=== PATIENT | male | born 2000 | race Caucasian/White ===

== ENCOUNTER 2019-02-01 14:07 | Emergency (ER) | payer SELFPAY ==
[~2019-02-01] VITALS: Ht 175 cm; Wt 79.0 kg
--- NOTE | 2019-02-01 14:29 | ED Upper Extremity ---
General Chief Complaint: Upper Extremity Stated Complaint: L WRIST PAIN Source: patient Exam Limitations: no limitations History of Present Illness Date Seen by Provider: Feb 01, 2019 Time Seen by Provider: 14:28 Initial Comments To ER with left wrist pain for the past month, no known injury pain is over the radial side distal radius. Any movement of the thumb worsens this pain. There is a tender swollen area at this location. Onset: other Severity: moderate Pain/Injury Location: left wrist Method of Injury: unknown Modifying Factors: Worse With Movement Allergies and Home Medications Allergies Coded Allergies: Penicillins (Unverified Allergy, Unknown, Shortness of Breath, 02/01/19) RASH Patient Home Medication List Home Medication List Reviewed: Yes Review of Systems Constitutional: see HPI EENTM: see HPI Respiratory: no symptoms reported Cardiovascular: no symptoms reported Genitourinary: no symptoms reported Musculoskeletal: see HPI Skin: no symptoms reported Psychiatric/Neurological: No Symptoms Reported Physical Exam Vital Signs Vital Signs - First Documented 02/01/19 14:40 Temp 37.0 Pulse 76 Resp 19 B/P (MAP) 130/79 (96) Pulse Ox 98 O2 Delivery Room Air Capillary Refill : Height, Weight, BMI Height: '" Weight: lbs. oz. kg; BMI Method: General Appearance: WD/WN, no apparent distress Respiratory: no respiratory distress, no accessory muscle use Shoulder: normal inspection, non-tender Elbow/Forearm: normal inspection, non-tender Wrist: Yes pain, Yes soft tissue tenderness (there is a swollen area to the radial side of the wrist just proximal to the joint tenderness palpation. The overlying skin is normal in appearance without erythema or ecchymosis) Hand: normal inspection, non-tender, Left Neurologic/Psychiatric: alert, normal mood/affect, oriented x 3 Skin: normal color, warm/dry Progress/Results/Core Measures Results/Orders My Orders Orders - KIMANI WEEMS APRN Wrist, Left, 3 Views Or More (02/01/19 14:27) Lidocaine 1% Inj 20 Ml (Xylocaine 1% Inj (02/01/19 14:45) Triamcinolone Acetonide Im (Kenalog-40) (02/01/19 14:45) Vital Signs/I&O 02/01/19 14:40 Temp 37.0 Pulse 76 Resp 19 B/P (MAP) 130/79 (96) Pulse Ox 98 O2 Delivery Room Air Departure Communication (Admissions) Recommended a injection of steroid and lidocaine into the tendon sheath at the site of inflammation,, he states he's never heard of this so he doesn't want it done. He will do a splint. He states he'll just come back here if it doesn't get better on its own in a few weeks. Advised him a primary care follow-up would be appropriate. Impression Primary Impression: De Quervain's tenosynovitis Disposition: HOME, SELF-CARE Condition: Stable Departure-Patient Inst. Decision time for Depature: 15:01 Patient Instructions: De Quervain's Tenosynovitis Add. Discharge Instructions: 1. Wear the splint for the next 3-4 weeks, if this fails to improve follow up with primary care such as urgent care for [facility] as it is not an emergency. All discharge instructions reviewed with patient and/or family. Voiced understanding. Images Extremities-Upper 1 - Swelling, Tenderness KIMANI WEEMS CLINICAL EDUCATION MANAGER Feb 01, 2019 14:29
[2019-02-01] MEDS ORDERED: LIDOCAINE 1% INJ 20 ML 20 ML VIAL INJ ONE (14:45)
[2019-02-01] MEDS ORDERED: TRIAMCINOLONE ACET (KENALOG-40) 40 MG/ML 1 ML VIAL IA ONE (14:45)
--- NOTE | 2019-02-01 14:52 | Diagnostic Imaging Report ---
INDICATION: Left wrist pain for three weeks. TIME OF EXAM: 02:43 p.m. FINDINGS: Three views of the left wrist were obtained. The distal radius and ulna appear intact. The carpus appears intact. Visualized metacarpals are unremarkable. No fractures are seen. IMPRESSION: No acute bony abnormality is detected. Dictated by: Dictated on workstation # [id number]
[2019-02-01 15:07] VITALS: BP 130/79
== END 2019-02-01 15:07 | disposition home or self-care (01) ==
LOC: ER 14:09
DX: M65.4 Radial styloid tenosynovitis [de Quervain] (principal); Z88.0 Allergy status to penicillin
CPT/HCPCS: 73110

== ENCOUNTER 2019-04-14 17:41 | Emergency (ER) | payer SELFPAY ==
[~2019-04-14] VITALS: Ht 175.3 cm; Wt 81.8 kg
--- NOTE | 2019-04-14 17:58 | ED Upper Extremity ---
General Chief Complaint: Upper Extremity Stated Complaint: L WRIST PAIN Nursing Triage Note: Pt amb to triage with c/o Lt wrist pain. Pt reports on 04/09/19 while carrying a gallon of milk, he injured wrist. Pt states, "I heard it pop." Pt reports hx "inflammed ligaments and tendons" to Lt wrist. Pt arrives wearing brace to Lt wrist. No swelling, bruising, or deformity noted. Nursing Sepsis Screen: No Definite Risk Source: patient Exam Limitations: no limitations History of Present Illness Date Seen by Provider: Apr 14, 2019 Time Seen by Provider: 18:38 Initial Comments ER with pain over the radial side distal forearm left after carrying a gallon of milk. He was seen in January of this year diagnosed with de Quervain's tenosynovitis, given a splint, offered Kenalog injection into the tendon sheath but he declined. He states he felt a popping/tearing sensation when carrying milk. Onset: last week Severity: moderate Pain/Injury Location: left shoulder Method of Injury: other Modifying Factors: Worse With Movement Allergies and Home Medications Allergies Coded Allergies: Penicillins (Unverified Allergy, Unknown, Shortness of Breath, 02/01/19) RASH Patient Home Medication List Home Medication List Reviewed: Yes Review of Systems Constitutional: see HPI EENTM: see HPI Respiratory: no symptoms reported Cardiovascular: no symptoms reported Genitourinary: no symptoms reported Musculoskeletal: see HPI Skin: no symptoms reported Psychiatric/Neurological: No Symptoms Reported Past Iepjaun-Oqbgnw-Mmedph Hx Patient Social History Alcohol Use: Denies Use Recreational Drug Use: No Smoking Status: Never a Smoker 2nd Hand Smoke Exposure: No Recent Foreign Travel: No Contact w/Someone Who Travel: No Recent Infectious Disease Expo: No Recent Hopitalizations: No Seasonal Allergies Seasonal Allergies: No Past Medical History Surgeries: No Respiratory: No Cardiac: No Neurological: No Genitourinary: No Gastrointestinal: No Musculoskeletal: No Endocrine: No HEENT: No Cancer: No Psychosocial: No Integumentary: No Blood Disorders: No Physical Exam Vital Signs Vital Signs - First Documented 04/14/19 17:47 Temp 37.3 Pulse 75 Resp 15 B/P (MAP) 129/87 (101) Pulse Ox 98 O2 Delivery Room Air Capillary Refill : Less Than 3 Seconds Height, Weight, BMI Height: '" Weight: lbs. oz. kg; 26.00 BMI Method: General Appearance: WD/WN, no apparent distress HEENT: PERRL/EOMI, normal ENT inspection Respiratory: no respiratory distress, no accessory muscle use Shoulder: normal inspection, non-tender Elbow/Forearm: normal inspection, Left (tenderness to palpation radial side distal forearm, normal extensor function of the thumb) Neurologic/Psychiatric: alert, normal mood/affect, oriented x 3 Skin: normal color, warm/dry Progress/Results/Core Measures Results/Orders My Orders Orders - KIMANI WEEMS APRN Wrist, Left, 3 Views Or More (04/14/19 17:46) Vital Signs/I&O 04/14/19 17:47 Temp 37.3 Pulse 75 Resp 15 B/P (MAP) 129/87 (101) Pulse Ox 98 O2 Delivery Room Air Blood Pressure Mean: 101 Departure Impression Primary Impression: Wrist strain Disposition: 01 HOME, SELF-CARE Condition: Improved Departure-Patient Inst. Decision time for Depature: 17:57 Referrals: NO,LOCAL PHYSICIAN (PCP/Family) Primary Care Physician Patient Instructions: Common Wrist Injuries (DC) Add. Discharge Instructions: 1.continue to wear the wrist splint I gave you last time 2. Follow-up with your doctor. All discharge instructions reviewed with patient and/or family. Voiced understanding. KIMANI WEEMS APRN Apr 14, 2019 17:58
--- NOTE | 2019-04-14 18:39 | Diagnostic Imaging Report ---
HISTORY: Popping of the left wrist while lifting. Reported history of tendinitis. COMPARISON: 02/01/2019. TECHNIQUE: Three views of the left wrist. FINDINGS: No acute fracture or dislocation is seen in the left wrist. Alignment is normal. Joint spaces are preserved. IMPRESSION: 1. No acute osseous abnormality is seen in the left wrist. Dictated by: Dictated on workstation # [id number]
[2019-04-14 18:47] VITALS: BP 129/87
== END 2019-04-14 18:47 | disposition home or self-care (01) ==
LOC: EDUNIT# 17:41 → ER 17:43
DX: S66.912A Strain of unspecified muscle, fascia and tendon at wrist and hand level, left hand, initial encounter (principal); Z88.0 Allergy status to penicillin; X50.0XXA Overexertion from strenuous movement or load, initial encounter
CPT/HCPCS: 73110

== ENCOUNTER 2022-01-22 18:55 | Emergency (ER) | payer SELFPAY ==
[~2022-01-22] VITALS: Ht 175.2 cm; Wt 99.3 kg
--- NOTE | 2022-01-22 19:17 | ED Abdominal Pain ---
General Chief Complaint: Abdominal/GI Problems Stated Complaint: STOMACH PAIN Source of Information: Patient Exam Limitations: No Limitations Allergies and Home Medications Allergies Coded Allergies: Penicillins (Unverified Allergy, Unknown, Shortness of Breath, 02/01/19) RASH Past Rcsoxtd-Bpcykm-Fdzwaz Hx Patient Social History Tobacco Use?: No Use of E-Cig and/or Vaping dev: No Substance use?: No Alcohol Use?: No Pt feels they are or have been: No Immunizations Up To Date Influenza Vaccine Up-to-Date: No; Not Current Seasonal Allergies Seasonal Allergies: No Past Medical History Surgeries: No Respiratory: No Cardiac: No Neurological: No Genitourinary: No Gastrointestinal: No Musculoskeletal: No Endocrine: No HEENT: No Cancer: No Psychosocial: No Integumentary: No Blood Disorders: No Physical Exam Vital Signs Vital Signs - First Documented 01/22/22 19:05 Temp 36.4 Pulse 78 Resp 14 B/P (MAP) 134/84 (101) Pulse Ox 97 O2 Delivery Room Air Capillary Refill : Height/Weight/BMI Height: '" Weight: lbs. oz. kg; 26.00 BMI Method: Progress/Results/Core Measures Results/Orders Lab Results Laboratory Tests Test 01/22/22 19:18 01/22/22 19:35 Range/Units Urine Color YELLOW Urine Clarity CLEAR Urine pH 6.0 5-9 Urine Specific [place] >=1.030 1.016-1.022 Urine Protein NEGATIVE NEGATIVE Urine Glucose (UA) NEGATIVE NEGATIVE Urine Ketones NEGATIVE NEGATIVE Urine Nitrite NEGATIVE NEGATIVE Urine Bilirubin NEGATIVE NEGATIVE Urine Urobilinogen 0.2 < = 1.0 MG/DL Urine Leukocyte Esterase 1+ H NEGATIVE Urine RBC (Auto) TRACE-I H NEGATIVE Urine RBC 0-2 /HPF Urine WBC 5-10 H /HPF Urine Squamous Epithelial Cells NONE /HPF Urine Renal Epithelial Cells NONE /HPF Urine Crystals NONE /LPF Urine Bacteria TRACE /HPF Urine Casts NONE /LPF Urine Mucus LARGE H /LPF Urine Culture Indicated YES White Blood Count 12.2 H 4.3-11.0 10^3/uL Red Blood Count 4.89 4.30-5.52 10^6/uL Hemoglobin 14.5 13.3-17.7 g/dL Hematocrit 43 40-54 % Mean Corpuscular Volume 87 80-99 fL Mean Corpuscular Hemoglobin 30 25-34 pg Mean Corpuscular Hemoglobin Concent 34 32-36 g/dL Red Cell Distribution Width 12.3 10.0-14.5 % Platelet Count 280 130-400 10^3/uL Mean Platelet Volume 11.7 9.0-12.2 fL Immature Granulocyte % (Auto) 1 % Neutrophils (%) (Auto) 61 42-75 % Lymphocytes (%) (Auto) 26 12-44 % Monocytes (%) (Auto) 11 0-12 % Eosinophils (%) (Auto) 2 0-10 % Basophils (%) (Auto) 1 0-10 % Neutrophils # (Auto) 7.4 1.8-7.8 10^3/uL Lymphocytes # (Auto) 3.1 1.0-4.0 10^3/uL Monocytes # (Auto) 1.4 H 0.0-1.0 10^3/uL Eosinophils # (Auto) 0.2 0.0-0.3 10^3/uL Basophils # (Auto) 0.1 0.0-0.1 10^3/uL Immature Granulocyte # (Auto) 0.1 0.0-0.1 10^3/uL Neutrophils % (Manual) 60 % Lymphocytes % (Manual) 24 % Monocytes % (Manual) 14 % Eosinophils % (Manual) 2 % Blood Morphology Comment NORMAL Sodium Level 138 135-145 MMOL/L Potassium Level 4.6 3.6-5.0 MMOL/L Chloride Level 102 98-107 MMOL/L Carbon Dioxide Level 23 21-32 MMOL/L Anion Gap 13 5-14 MMOL/L Blood Urea Nitrogen 17 7-18 MG/DL Creatinine 1.10 0.60-1.30 MG/DL Estimat Glomerular Filtration Rate 97 BUN/Creatinine Ratio 15 Glucose Level 83 70-105 MG/DL Calcium Level 9.6 8.5-10.1 MG/DL Corrected Calcium 9.4 8.5-10.1 MG/DL Total Bilirubin 0.4 0.1-1.0 MG/DL Aspartate Amino Transf (AST/SGOT) 31 5-34 U/L Alanine Aminotransferase (ALT/SGPT) 35 0-55 U/L Alkaline Phosphatase 75 40-136 U/L C-Reactive Protein High Sensitivity 1.59 H 0.00-0.50 MG/DL Total Protein 7.6 6.4-8.2 GM/DL Albumin 4.3 3.2-4.5 GM/DL My Orders Orders - JOHAN MORENO CONSTRUCTION OPERATIONS MANAGER Ua Culture If Indicated (01/22/22 19:14) Cbc And Manual Diff (01/22/22 19:28) Comprehensive Metabolic Panel (01/22/22 19:28) Hs C Reactive Protein (01/22/22 19:28) Ed Iv/Invasive Line Start (01/22/22 19:28) Ct Abdomen/Pelvis Wo (01/22/22 19:28) Urine Culture (01/22/22 19:18) Ketorolac Injection (Toradol Injection) (01/22/22 20:30) Vital Signs/I&O 01/22/22 19:05 Temp 36.4 Pulse 78 Resp 14 B/P (MAP) 134/84 (101) Pulse Ox 97 O2 Delivery Room Air Departure Impression Primary Impression: Epiploic appendagitis Disposition: HOME, SELF-CARE Condition: Improved Departure-Patient Inst. Decision time for Depature: 20:25 Referrals: NO,LOCAL PHYSICIAN (PCP/Family) Primary Care Physician Patient Instructions: Abdominal Pain, Adult ED Add. Discharge Instructions: Plan: 1. Take antibiotics by mouth twice daily as directed. 2. Drink plenty of fluids to stay hydrated. We are culturing your urine and will notify you if we need to change your antibiotics. 3. May take Ibuprofen 800mg by mouth every 8 hours as needed for pain, take with food. Do not take for more than a few days at this dose. 4. Return to ER for any new, concerning, or worsening symptoms. All discharge instructions reviewed with patient and/or family. Voiced understanding. Scripts Cefuroxime Axetil (Cefuroxime) 500 Mg Tablet 500 MG PO BID for 7 Days, #14 TAB 0 Refills Prov: JOHAN MORENO CONSTRUCTION OPERATIONS MANAGER 01/22/22 JOHAN MORENO CONSTRUCTION OPERATIONS MANAGER Jan 22, 2022 19:17
[2022-01-22 19:42] LABS: BASOPHILS # (AUTO) 0.1 10^3/uL (0.0-0.1); BASOPHILS % (AUTO) 1 % (0-10); EOSINOPHILS # (AUTO) 0.2 10^3/uL (0.0-0.3); EOSINOPHILS % (AUTO) 2 % (0-10); HEMATOCRIT 43 % (40-54); HEMOGLOBIN 14.5 g/dL (13.3-17.7); LYMPHOCYTES # (AUTO) 3.1 10^3/uL (1.0-4.0); LYMPHOCYTES % (AUTO) 26 % (12-44); MEAN CORPUSCULAR HEMOGLOBIN 30 pg (25-34); MEAN CORPUSCULAR HGB CONC 34 g/dL (32-36); MEAN CORPUSCULAR VOLUME 87 fL (80-99); MEAN PLATELET VOLUME 11.7 fL (9.0-12.2); MONOCYTES # (AUTO) 1.4 10^3/uL (0.0-1.0); MONOCYTES % (AUTO) 11 % (0-12); NEUTROPHILS # (AUTO) 7.4 10^3/uL (1.8-7.8); NEUTROPHILS % (AUTO) 61 % (42-75); PLATELET COUNT 280 10^3/uL (130-400); WHITE BLOOD COUNT 12.2 10^3/uL (4.3-11.0)
[2022-01-22 19:42] LABS: BILIRUBIN,URINE NEGATIVE (NEGATIVE); CLARITY,URINE CLEAR; COLOR,URINE YELLOW; GLUCOSE, URINE (UA) NEGATIVE (NEGATIVE); KETONES,URINE NEGATIVE (NEGATIVE); LEUKOCYTE ESTERASE ,URINE 1+ (NEGATIVE); NITRITE,URINE NEGATIVE (NEGATIVE); PROTEIN,URINE NEGATIVE (NEGATIVE)
[2022-01-22 19:44] LABS: BACTERIA,URINE TRACE /HPF; RBC,URINE 0-2 /HPF
[2022-01-22 19:57] LABS: EOSINOPHILS % (MANUAL) 2 %; LYMPHOCYTES % (MANUAL) 24 %; MONOCYTES % (MANUAL) 14 %; NEUTROPHILS % (MANUAL) 60 %; RBC MORPH NORMAL
--- NOTE | 2022-01-22 20:08 | Diagnostic Imaging Report ---
PROCEDURE: CT abdomen and pelvis without contrast. TECHNIQUE: Multiple contiguous axial images were obtained through the abdomen and pelvis without the use of intravenous contrast. Auto Exposure Controls were utilized during the CT exam to meet ALARA standards for radiation dose reduction. INDICATION: Worsening abdominal pain, worse on the left side. COMPARISON: None FINDINGS: The lung bases are clear. The heart is normal in size. There is no pericardial effusion. The liver demonstrates no focal lesions. The spleen appears normal. The pancreas is normal. The adrenal glands appear normal. The kidneys demonstrate no hydronephrosis or hydroureter. No calculi are seen. The appendix is normal. The bowel loops are nondistended without obstruction. There is edema in the pelvis. There is a fatty lesion at the right sigmoid colon measuring 2.0 x 1.0 cm in size, with surrounding edema and fluid, most compatible with an epiploic appendagitis. Colitis is in differential but thought less likely. There is no free air. No acute osseous abnormality is seen. IMPRESSION: 1. Mild edema in the pelvis with findings of an epiploic appendagitis at the sigmoid colon. Colitis is in the differential but thought less likely. Dictated by: Dictated on workstation # [id number]
[2022-01-22 20:13] LABS: ALBUMIN 4.3 GM/DL (3.2-4.5); BILIRUBIN,TOTAL 0.4 MG/DL (0.1-1.0); CALCIUM 9.6 MG/DL (8.5-10.1); CREATININE SERUM 1.1 MG/DL (0.60-1.30); POTASSIUM 4.6 MMOL/L (3.6-5.0); TOTAL PROTEIN 7.6 GM/DL (6.4-8.2)
[2022-01-22] MEDS ORDERED: KETOROLAC 30 MG/ML VIAL IVP ONE (20:30)
[2022-01-22] MEDS ORDERED: cefTRIAXone 1 GM PRE-MIX 50 ML IV ONE (20:30)
[2022-01-22] MEDS ORDERED: CEFU500T63 PO (20:32)
[2022-01-22 20:40] VITALS: BP 120/70
== END 2022-01-22 20:42 | disposition home or self-care (01) ==
LOC: EDUNIT# 18:55 → ER 18:57
DX: K63.89 Other specified diseases of intestine (principal); Z28.310 Unvaccinated for COVID-19
CPT/HCPCS: 36415; 74176; 80053; 81000; 85007; 85027; 86141; 87088

== ENCOUNTER 2022-02-07 16:17 | Emergency (ER) | payer SELFPAY ==
[~2022-02-07] VITALS: Ht 177.8 cm; Wt 95.3 kg
[~2022-02-07 16:17] MED LIST: CEFU500T63 PO
[2022-02-07 16:27] VITALS: BP 143/82
--- NOTE | 2022-02-07 16:42 | ED General ---
General Chief Complaint: Cough/Cold/Flu Symptoms Stated Complaint: FEVER,NAUSEA,LOSS OF APET. Nursing Triage Note: PT AMB TO [facility] 9 WITH COMPLAINT OF NOT FEELING WELL SINCE FRIDAY. LIGHTHEADED, LOSS OF APPETITE. STATES HIS BOSS WAS DIAGNOSED YESTERDAY WITH THE FLU. History of Present Illness Date Seen by Provider: Feb 07, 2022 Time Seen by Provider: 16:30 Initial Comments 21 year old male here because his boss has "flu" and he has been riding in the same car. Unsure if Influenza or Covid or GI symptoms. Patient reports occasional dry cough, feeling warm, he has not checked his temperature with a thermometer, decreased appetite, occasional nausea. He has not had vomiting or diarrhea. He has not been vaccinated for COVID or influen za. He reports having COVID approximately 1 year ago. No other complaints at this time. He does not have a primary care provider. He occasionally has a headache, he has not taken Tylenol or ibuprofen for symptoms today. He is eating and drinking with no complaints. Timing/Duration: 2-3 Days Severity: Mild Associated Systoms: No Chest Pain; Cough (non productive); No Diaphoresis, No Fever/Chills; Headaches; No Loss of Appetite; Malaise; No Nausea/Vomiting, No Rash, No Seizure, No Shortness of Air, No Syncope, No Weakness Allergies and Home Medications Allergies Coded Allergies: Penicillins (Unverified Allergy, Unknown, Shortness of Breath, 02/01/19) RASH Patient Home Medication List Home Medication List Reviewed: Yes Cefuroxime Axetil (Cefuroxime) 500 Mg Tablet, 500 MG PO BID Prescribed by: JOHAN MORENO on 01/22/222031 Review of Systems Review of Systems Constitutional: see HPI, malaise EENTM: see HPI, no symptoms reported Respiratory: see HPI, cough; No dyspnea on exertion, No short of breath Cardiovascular: no symptoms reported, see HPI Gastrointestinal: no symptoms reported, see HPI; No vomiting All Other Systems Reviewed Negative Unless Noted: Yes Past Dtulbsy-Vqvdei-Yemuxt Hx Patient Social History Tobacco Use?: No Use of E-Cig and/or Vaping dev: No Substance use?: No Alcohol Use?: No Pt feels they are or have been: No Seasonal Allergies Seasonal Allergies: No Past Medical History Surgeries: No Respiratory: No Cardiac: No Neurological: No Genitourinary: No Gastrointestinal: No Musculoskeletal: No Endocrine: No HEENT: No Cancer: No Psychosocial: No Integumentary: No Blood Disorders: No Family Medical History Reviewed Nursing Family Hx Physical Exam Vital Signs Vital Signs - First Documented 02/07/22 16:27 Temp 36.8 Pulse 76 Resp 19 B/P (MAP) 143/82 (102) Pulse Ox 98 O2 Delivery Room Air Capillary Refill : Less Than 3 Seconds Height, Weight, BMI Height: '" Weight: lbs. oz. kg; 30.00 BMI Method: General Appearance: No Apparent Distress, WD/WN HEENT: PERRL/EOMI, TMs Normal, Normal ENT Inspection, Pharynx Normal Neck: Full Range of Motion, Normal Inspection, Non Tender, Supple Respiratory: Chest Non Tender, Lungs Clear, Normal Breath Sounds Cardiovascular: Regular Rate, Rhythm, No Edema, No Murmur, Normal Peripheral Pulses Gastrointestinal: Normal Bowel Sounds, Non Tender, Soft Extremity: Normal Capillary Refill, Normal Inspection Neurologic/Psychiatric: Alert, Oriented x3, No Motor/Sensory Deficits, Normal Mood/Affect Skin: Normal Color, Warm/Dry Progress/Results/Core Measures Suspected Sepsis SIRS Temperature: Pulse: 76 Respiratory Rate: 19 Blood Pressure 143 /82 Mean: 102 Results/Orders Lab Results Laboratory Tests Test 02/07/22 16:35 Range/Units Influenza Type A (RT-PCR) Not Detected Not Detecte Influenza Type B (RT-PCR) Not Detected Not Detecte SARS-CoV-2 RNA (RT-PCR) Not Detected Not Detecte My Orders Orders - MACIEL MARTINEZ Influenza A And B By Pcr (02/07/22 16:34) Covid 19 Inhouse Test (02/07/22 16:34) Vital Signs/I&O 02/07/22 16:27 Temp 36.8 Pulse 76 Resp 19 B/P (MAP) 143/82 (102) Pulse Ox 98 O2 Delivery Room Air Capillary Refill : Less Than 3 Seconds Blood Pressure Mean: 102 Departure Impression Primary Impression: Viral URI with cough Disposition: 01 HOME, SELF-CARE Condition: Improved Departure-Patient Inst. Decision time for Depature: 16:30 Referrals: [facility], [facility] [place] NO,LOCAL PHYSICIAN (PCP) Primary Care Physician Add. Discharge Instructions: Establish care with a Primary Care Provider. For non-emergent complaints, consider being evaluated at Urgent Care or [facility]. Alternate ibuprofen 600 mg and Tylenol 650 mg every 4 hours for fever or pain. [place] diet as tolerated. Return to the emergency department for new, life threatening concerns. All discharge instructions reviewed with patient and/or family. Voiced understanding. MACIEL MARTINEZ Feb 07, 2022 16:42
== END 2022-02-07 17:14 | disposition home or self-care (01) ==
LOC: EDUNIT# 16:17 → ER 16:19
DX: J06.9 Acute upper respiratory infection, unspecified (principal); Z20.822 Contact with and (suspected) exposure to COVID-19
CPT/HCPCS: 87636; 99283

== ENCOUNTER 2022-02-11 13:25 | Emergency (ER) | payer SELFPAY ==
[2022-02-11] MEDS ORDERED: OXYMETAZOLINE (AFRIN) 0.05% NA 30 ML BTL ONE (13:34)
--- NOTE | 2022-02-11 13:41 | ED EENT ---
History of Present Illness General Chief Complaint: Nasal Problems Stated Complaint: BLEEDING NOSE Nursing Triage Note: PT ARRIVAL TO ER FROM WORK WITH COMPLAINT OF NOSE BLEED X30 MIN. DENIES TRAUMA OR INJURY. Source: patient Exam Limitations: no limitations History of Present Illness Date Seen by Provider: Feb 11, 2022 Time Seen by Provider: 13:32 Initial Comments 21-year-old male who is otherwise healthy presents for nosebleed. Symptoms started about an hour to an hour and a half ago and have been. Had similar issue a couple years ago but has not had a chronic problem with nosebleeds. No gingival bleeding and no easy bruising. He is not on any blood thinning medications. No digital or other trauma. Allergies and Home Medications Allergies Coded Allergies: Penicillins (Unverified Allergy, Unknown, Shortness of Breath, 02/01/19) RASH Patient Home Medication List Home Medication List Reviewed: Yes Cefuroxime Axetil (Cefuroxime) 500 Mg Tablet, 500 MG PO BID Prescribed by: JOHAN MORENO on 01/22/222031 Review of Systems Review of Systems Constitutional: no symptoms reported Eyes: No Symptoms Reported Ears: No Symptoms Reported Nose: epistaxis Mouth: no symptoms reported Throat: no symptoms reported Respiratory: no symptoms reported Cardiovascular: no symptoms reported Gastrointestinal: no symptoms reported Musculoskeletal: no symptoms reported Skin: no symptoms reported Neurological: No Symptoms Reported Hematologic/Lymphatic: No Symptoms Reported Immunological/Allergic: no symptoms reported Past Nvelezj-Kjddlf-Mqyasv Hx Patient Social History Tobacco Use?: No Use of E-Cig and/or Vaping dev: No Substance use?: No Alcohol Use?: No Pt feels they are or have been: No Immunizations Up To Date Influenza Vaccine Up-to-Date: No; Not Current Seasonal Allergies Seasonal Allergies: No Past Medical History Surgeries: No Respiratory: No Cardiac: No Neurological: No Genitourinary: No Gastrointestinal: No Musculoskeletal: No Endocrine: No HEENT: No Cancer: No Psychosocial: No Integumentary: No Blood Disorders: No Family Medical History Reviewed Nursing Family Hx No Pertinent Family Hx Physical Exam Vital Signs Vital Signs - First Documented 02/11/22 13:32 Temp 36.8 Pulse 77 Resp 16 B/P (MAP) 130/89 (103) Pulse Ox 98 O2 Delivery Room Air Height, Weight, BMI Height: '" Weight: lbs. oz. kg; 30.00 BMI Method: General Appearance: WD/WN, no apparent distress Nose: normal inspection, other (Slight bleeding left posterior nare. Minimal at present.) Mouth/Throat: normal mouth inspection, pharynx normal Neck: non-tender, full range of motion, supple, normal inspection Cardiovascular: regular rate, rhythm, no edema, no gallop Respiratory: chest non-tender, lungs clear, normal breath sounds, no respiratory distress, no accessory muscle use Gastrointestinal: normal bowel sounds, non tender, soft, no organomegaly Neurologic/Psychiatric: alert, normal mood/affect, oriented x 3 Skin: normal color, warm/dry Progress/Results/Core Measures Results/Orders My Orders Orders - RL CORONA DO Oxymetazoline 0.05% Nasal Bowring (Afrin 0. (02/11/22 13:34) Oxymetazoline 0.05% Nasal Bowring (Afrin 0. (02/11/22 13:45) Vital Signs/I&O 02/11/22 13:32 Temp 36.8 Pulse 77 Resp 16 B/P (MAP) 130/89 (103) Pulse Ox 98 O2 Delivery Room Air Blood Pressure Mean: 103 Departure Communication (Admissions) Patient is hemodynamically stable. No further bleeding with provided treatment. Discharged in stable condition with supportive care. Impression Primary Impression: Epistaxis Disposition: HOME, SELF-CARE Condition: Stable Departure-Patient Inst. Referrals: NO,LOCAL PHYSICIAN (PCP/Family) Primary Care Physician Patient Instructions: Nosebleeds (DC) Add. Discharge Instructions: If your nosebleed again please use the Afrin, 2 sprays in each nostril and clamp your nose with the provided device. We have this in place for 30 minutes and see if you are still bleeding. If you continue to bleed return to the emergency department. Return sooner if you develop any shortness of breath, lightheadedness or if your symptoms change in any way concerning to you. It is important that you do not blow your nose or put anything up her nose for the next 48 hours to prevent rebleeding. Recommend you take the rest of today off. Follow-up with your primary doctor for further discussion of nosebleeds should they become persistent. All discharge instructions reviewed with patient and/or family. Voiced understanding. Work/School Note: Work Release Form Date Seen in the Emergency Department: Feb 11, 2022 Return to Work: Feb 12, 2022 Restrictions: No Restrictions CJRL Camp DO Feb 11, 2022 13:41
[2022-02-11] MEDS ORDERED: OXYMETAZOLINE (AFRIN) 0.05% NA 30 ML BTL SCH (13:45)
[2022-02-11 14:29] VITALS: BP 133/84
== END 2022-02-11 14:29 | disposition home or self-care (01) ==
LOC: EDUNIT# 13:25 → ER 13:28
DX: R04.0 Epistaxis (principal); Z28.310 Unvaccinated for COVID-19
CPT/HCPCS: 30901